=== PATIENT | male | born 1950 | race Caucasian/White ===

== ENCOUNTER 2022-11-28 07:07 | Outpatient (CLI) | payer MEDICARE | END 2022-11-28 07:08 | disposition home or self-care (01) | LOC: MRI 07:07 | PROVIDERS: ATTEND Orthopaedic Surgery | DX: M54.50 Low back pain, unspecified (principal); M51.36 Other intervertebral disc degeneration, lumbar region | CPT/HCPCS: 72148 ==

== ENCOUNTER 2023-11-30 11:41 | Outpatient (CLI) | payer MEDICARE | END 2023-11-30 11:42 | disposition home or self-care (01) | LOC: RAD 11:41 | PROVIDERS: ATTEND Physical Medicine & Rehabilitation | DX: Z48.812 Encounter for surgical aftercare following surgery on the circulatory system (principal); M75.02 Adhesive capsulitis of left shoulder; Z95.0 Presence of cardiac pacemaker | CPT/HCPCS: 71046 ==

== ENCOUNTER 2023-12-04 07:32 | Outpatient (CLI) | payer MEDICARE | END 2023-12-04 07:33 | disposition home or self-care (01) | LOC: MRI 07:32 | PROVIDERS: ATTEND Physical Medicine & Rehabilitation | DX: M75.02 Adhesive capsulitis of left shoulder (principal); S46.812A Strain of other muscles, fascia and tendons at shoulder and upper arm level, left arm, initial encounter; M75.112 Incomplete rotator cuff tear or rupture of left shoulder, not specified as traumatic; S43.082A Other subluxation of left shoulder joint, initial encounter; M19.012 Primary osteoarthritis, left shoulder; M25.712 Osteophyte, left shoulder ==

== ENCOUNTER 2024-04-22 13:01 | Outpatient (CLI) | payer MEDICARE | END 2024-04-22 13:02 | disposition home or self-care (01) | LOC: MRI 13:01 | PROVIDERS: ATTEND Physical Medicine & Rehabilitation | DX: M47.812 Spondylosis without myelopathy or radiculopathy, cervical region (principal); M50.30 Other cervical disc degeneration, unspecified cervical region | CPT/HCPCS: 72141 ==

== ENCOUNTER 2024-09-16 07:12 | Outpatient (CLI) | payer MEDICARE ==
[2024-09-16] MEDS ORDERED: Magnevist 469MG/ML 20 ML VIAL ONE (11:52)
== END 2024-09-16 07:13 | disposition home or self-care (01) ==
LOC: MRI 07:12
PROVIDERS: ATTEND Psychiatry & Neurology Neurology
DX: D18.00 Hemangioma unspecified site (principal); I67.82 Cerebral ischemia; R90.89 Other abnormal findings on diagnostic imaging of central nervous system
CPT/HCPCS: 70553; 71046; 76376